=== PATIENT | male | born 2000 ===

== ENCOUNTER → 2023-04-19 09:46 | Outpatient (CLI) | payer OTHER, SELFPAY ==
--- NOTE | ~2023-04-19 | US_ITS ---
Corrected Report Correction to Ordering Provider 04/19/2023 VIRY This report was recreated on 04/19/2023. Original report was signed by Roberto Carlos Kraft M.D. on 04/19/2023 10:33 CDT. US breast BI limited DATE: 04/19/2023 10:24 INDICATION: Bilateral palpable abnormalities of the breasts in this transgender female to male patient TECHNIQUE: Real-time imaging targeted at areas of complaint of breast lumps COMPARISON: None FINDINGS: Right breast: 1:00 4 cm from nipple: No suspicious mass or shadowing is noted. Left breast: 10:00 4 cm from nipple: No suspicious mass or shadowing is detected. IMPRESSION: No sonographic evidence of malignancy Reviewed, dictated and finalized at [facility]. Reviewed, dictated and finalized at [facility]. MTDD
== END ==
DX: N63.22 Unspecified lump in the left breast, upper inner quadrant (principal); N63.12 Unspecified lump in the right breast, upper inner quadrant
CPT/HCPCS: 76642